=== PATIENT | female | born 2000 | race Two or more races ===

== ENCOUNTER 2020-05-02 12:42 | Emergency (ER) | payer OTHER ==
[~2020-05-02] VITALS: Ht 162.6 cm; Wt 78.7 kg
--- NOTE | 2020-05-02 13:50 | NUR ---
PT OFF FLOOR TO CT
[2020-05-02 13:53] LABS: BASOPHILS % (AUTO) 0 % (0-1); EOSINOPHILS % (AUTO) 0 % (1-7); LYMPHOCYTES % (AUTO) 14 % (22-44); MEAN CORPUSCULAR HEMOGLOBIN 32.7 pg (27.0-34.8); MEAN CORPUSCULAR HGB CONC 33.9 g/dL (32.4-35.8); MEAN PLATELET VOLUME 9.3 fL (7.4-10.4); MONOCYTES % (AUTO) 6 % (2-9); NEUTROPHILS % (AUTO) 80 % (42-75); PLATELET COUNT 252 x10^3/uL (130-400); RED BLOOD COUNT 4.01 x10^6/uL (3.82-5.3); RED CELL DISTRIBUTION WIDTH 13.4 % (9.6-15.2)
[2020-05-02 13:56] LABS: ALANINE AMINOTRANSFERASE 20 U/L (12-78); ALBUMIN 3.8 g/dL (3.4-5.0); ANION GAP 5 mmol/L (5-15); CALCIUM 8.8 mg/dL (8.5-10.1); CHLORIDE 109 mmol/L (98-107)
[2020-05-02 13:57] LABS: MD NO
--- NOTE | 2020-05-02 13:58 | NUR ---
PT BACK IN ROOM
--- NOTE | 2020-05-02 13:59 | NUR ---
PT C/O ABD PAIN TO LOWER RIGHT QUADRANT THAT STARTED THIS AM. PT DENIES DIARRHEA AND NAUSEA, HOWEVER HAS BEEN CONSTIPATED. PT DENIES FEVER.
[2020-05-02 14:01] LABS: ALKALINE PHOSPHATASE 54 U/L (45-117); BILIRUBIN,TOTAL 0.5 mg/dL (0.2-1.0); TOTAL PROTEIN 8.7 g/dL (6.4-8.2)
[2020-05-02 14:02] LABS: MICROSCOPIC INDICATED
--- NOTE | 2020-05-02 14:07 | NUR ---
PT STATES PAIN WORSENS WITH MOVEMENT.
[2020-05-02] MEDS ORDERED: SODIUM CHLORIDE FLUSH 10ML SYR IVF ONE (15:30)
[2020-05-02] MEDS ORDERED: OMNIPAQUE 350 MG/ML, 100ML BOTTLE ONE (16:00)
--- NOTE | 2020-05-02 16:08 | NUR ---
IV ESTABLISHED. PT OFF FLOOR TO CT.
--- NOTE | 2020-05-02 16:34 | NUR ---
PT BACK IN ROOM. RESTING IN BED. AWAITING FURTHER ORDERS.
--- NOTE | 2020-05-02 17:34 | NUR ---
PT REC'VD DISCHARGE PAPERWORK AND EDUCATION. PT STATES SHE HAS NO FURTHER QUESTIONS.
[2020-05-02 17:37] VITALS: BP 113/60
== END 2020-05-02 17:49 | disposition home or self-care (01) ==
LOC: ED 13:40
DX: N83.291 Other ovarian cyst, right side (principal)
CPT/HCPCS: 36415; 74021; 74177; 80053; 81001; 83690; 84703; 85025; 99285; Q9967

== ENCOUNTER 2020-11-01 02:09 | Emergency (ER) | payer OTHER ==
[~2020-11-01] VITALS: Ht 162.6 cm; Wt 80.7 kg
[2020-11-01] MEDS ORDERED: ONDANSETRON 2MG/ML, 2ML IVPush ONE (02:30)
[2020-11-01] MEDS ORDERED: MORPHINE SULFATE 4 MG/ML, 1ML IVPush PRN (02:30)
--- NOTE | 2020-11-01 02:35 | NUR ---
pt here for rlq pain that started at 1100 yesterday. pt has nausea but no vomiting. vss. Pt up to bathroom for ua sample.
--- NOTE | 2020-11-01 02:55 | NUR ---
ua sent to lab. Pt doesnt want pain meds at this time and does not need a piv. notified. call light in reach
[2020-11-01 02:56] LABS: BASOPHILS % (AUTO) 0 % (0-1); EOSINOPHILS % (AUTO) 1 % (1-7); LYMPHOCYTES % (AUTO) 38 % (22-44); MD NO; MEAN CORPUSCULAR HEMOGLOBIN 32.9 pg (27.0-34.8); MEAN CORPUSCULAR HGB CONC 34.4 g/dL (32.4-35.8); MEAN PLATELET VOLUME 8.8 fL (7.4-10.4); MONOCYTES % (AUTO) 9 % (2-9); NEUTROPHILS % (AUTO) 52 % (42-75); PLATELET COUNT 292 x10^3/uL (130-400); RED BLOOD COUNT 4.15 x10^6/uL (3.82-5.3); RED CELL DISTRIBUTION WIDTH 13.4 % (9.6-15.2)
[2020-11-01 03:03] LABS: MICROSCOPIC AUTO
[2020-11-01 03:09] LABS: ALBUMIN 3.9 g/dL (3.4-5.0); ANION GAP 7 mmol/L (5-15); CALCIUM 9.1 mg/dL (8.5-10.1); CHLORIDE 107 mmol/L (98-107)
[2020-11-01 03:14] LABS: ALANINE AMINOTRANSFERASE 20 U/L (12-78); ALKALINE PHOSPHATASE 65 U/L (45-117); BILIRUBIN,TOTAL 0.6 mg/dL (0.2-1.0); CREATININE 0.74 mg/dL (0.55-1.02); TOTAL PROTEIN 8.7 g/dL (6.4-8.2)
[2020-11-01 04:46] VITALS: BP 98/69
--- NOTE | 2020-11-01 04:47 | NUR ---
P UP FOR RE EVALUATION.
[2020-11-01] MEDS ORDERED: KETOROLAC 60 MG/2 ML ONE (04:59)
[2020-11-01] MEDS ORDERED: KETOROLAC 30 MG/1 ML IM ONE (05:00)
--- NOTE | 2020-11-01 05:15 | NUR ---
Patient given discharge instructions and they have confirmed that they understand the instructions. Patient ambulatory with steady gait.
== END 2020-11-01 05:17 | disposition home or self-care (01) ==
LOC: ED 03:50
DX: N83.291 Other ovarian cyst, right side (principal)
CPT/HCPCS: 36415; 76830; 80053; 81001; 83690; 84703; 85025; 87086; 96372; 99284; J1885